=== PATIENT | male | born 1975 | race Caucasian/White ===

== ENCOUNTER → 2018-08-03 09:25 | Outpatient (CLI) | payer OTHER, SELFPAY | PROVIDERS: Family Provider Family Medicine; PCP Family Medicine | DX: Z23 Encounter for immunization (principal) | CPT/HCPCS: 90471; 90686 ==

== ENCOUNTER → 2019-08-14 15:44 | Outpatient (CLI) | payer OTHER, SELFPAY ==
--- NOTE | 2019-08-14 | DI.RAD.S_ITS ---
PROCEDURE: XR ANKLE RT MIN 3V INDICATIONS: right ankle pain and swelling TECHNIQUE: 3 views of the ankle were acquired. COMPARISON: [facility] [place], CR, XR ANKLE 3+ VIEWS LEFT, 07/10/2018, 10:28. FINDINGS: Bones: Minimally displaced distal fibular metaphyseal fracture is present and there is adjacent soft tissue swelling. Fracture is likely intra-articular. Ankle mortise is symmetric. Plantar calcaneal spurring. Soft tissues: No tibiotalar joint effusion. Achilles tendon appears normal. IMPRESSION: Minimally displaced distal fibular metaphyseal fracture. Dictated by: Pepito Chew [facility] Interpreted: Joe Russell MD on 08/14/2019 at 17:08 Approved by: Joe Russell M.D. on 08/15/2019 at 9:20
== END ==
PROVIDERS: PCP Student in an Organized Health Care Education/Training Program; Visit Provider Internal Medicine
DX: M25.571 Pain in right ankle and joints of right foot (principal); M25.471 Effusion, right ankle
CPT/HCPCS: 73610

== ENCOUNTER → 2019-08-16 12:27 | Outpatient (CLI) | payer OTHER, SELFPAY | PROVIDERS: PCP Student in an Organized Health Care Education/Training Program | DX: Z23 Encounter for immunization (principal) | CPT/HCPCS: 90471; 90686 ==

== ENCOUNTER → 2019-09-05 10:23 | Outpatient (CLI) | payer OTHER, SELFPAY ==
--- NOTE | 2019-09-05 | DI.RAD.S_ITS ---
PROCEDURE: XR TIBIA FUBULA RT 2V INDICATIONS: f/u fracture R Fibula TECHNIQUE: 2 views of the tibia and fibula were acquired. COMPARISON: [facility], [place], XR ANKLE RT MIN 3V, 08/14/2019, 15:55. FINDINGS: Bones: Stable radiographic in alignment of known distal right fibular fracture. No significant periosteal reaction or callus formation. No other fractures identified. Soft tissues: No suspicious soft tissue calcifications or masses. IMPRESSION: Stable appearance and alignment of minimally displaced distal fibular metaphyseal fracture. Dictated by: Joe Russell M.D. on 09/05/2019 at 14:44 Approved by: Joe Russell M.D. on 09/05/2019 at 14:50
== END ==
PROVIDERS: PCP Student in an Organized Health Care Education/Training Program; Visit Provider Student in an Organized Health Care Education/Training Program
DX: S89.301D Unspecified physeal fracture of lower end of right fibula, subsequent encounter for fracture with routine healing (principal)
CPT/HCPCS: 73590

== ENCOUNTER → 2020-11-28 09:10 | Outpatient (CLI) | payer OTHER, SELFPAY ==
[2020-11-28] MEDS: COVID-19 VACC(MODERNA-1)/PF 100 MCG/0.5 ML VIAL IM (09:16)
== END ==
PROVIDERS: PCP Student in an Organized Health Care Education/Training Program; Visit Provider Internal Medicine
DX: Z23 Encounter for immunization (principal)
CPT/HCPCS: 0011A; 91301

== ENCOUNTER → 2020-12-26 09:04 | Outpatient (CLI) | payer OTHER, SELFPAY ==
[2020-12-26] MEDS: COVID-19 VACC #2, MRNA(MOD) 100 MCG/0.5 ML VIAL IM (09:13)
== END ==
PROVIDERS: PCP Student in an Organized Health Care Education/Training Program; Visit Provider Internal Medicine
DX: Z23 Encounter for immunization (principal)
CPT/HCPCS: 0012A; 91301

== ENCOUNTER → 2025-03-20 12:49 | Outpatient (CLI) | payer OTHER, SELFPAY ==
--- NOTE | 2025-03-20 12:55 | DI.RAD.S_ITS ---
PROCEDURE: XR KNEE RT 3V INDICATIONS: Bilateral primary osteoarthritis of knee TECHNIQUE: 3 views of the knee were acquired. COMPARISON: None. FINDINGS: Bones: Patella Anuradha and slight lateral patellar subluxation noted Joints: Moderate patellofemoral and tibial femoral degenerative change appreciated. There are cluster 3-4 loose bodies in the posterior central tibial femoral joint all less than 6 mm. Small suprapatellar effusion noted Soft tissues: 8 mm calcification at the patellar tendon insertion on the tibial tuberosity is likely stigmata of old trauma or inflammation. IMPRESSION: Moderate degeneration. Small loose bodies posterior central tibial femoral joint. Other chronic findings. Patella Anuradha with slight lateral patellar subluxation. Small effusion Dictated by: López Cottrell M.D. on 03/21/2025 at 6:38 Approved by: López Cottrell M.D. on 03/21/2025 at 6:40
== END ==
LOC: RAD 12:52
PROVIDERS: PCP Family Medicine; Referring Provider Family Medicine; Visit Provider Family Medicine
DX: M17.0 Bilateral primary osteoarthritis of knee (principal); S83.011A Lateral subluxation of right patella, initial encounter; M25.461 Effusion, right knee
CPT/HCPCS: 73562

== ENCOUNTER → 2025-05-20 12:21 | Outpatient (CLI) | payer OTHER, SELFPAY ==
--- NOTE | 2025-05-20 12:22 | DI.MRI.S_ITS ---
PROCEDURE: MR HAND LT WO CON INDICATIONS: LEFT HAND PAIN TECHNIQUE: Noncontrast oblique coronal T1 spin echo and T2 fast spin echo with fat saturation, axial and sagittal T2 fast spin echo with fat saturation, through the hand. COMPARISON: None. FINDINGS: Image quality: Excellent. Bones: Severe degenerative changes of the 1st carpometacarpal joint, with joint space narrowing, osteophytosis, subchondral cystic changes, and marked subchondral marrow edema, extending distally to the 1st metacarpal mid diaphysis. No acute fracture. Soft tissue: The flexors, and the extensor tendons are unremarkable. Muscles are normal in signal. No ganglion cyst. IMPRESSION: Severe degenerative change of the 1st carpometacarpal joint. Dictated by: Lucia Lee M.D. on 05/20/2025 at 14:03 Approved by: Lucia Lee M.D. on 05/20/2025 at 14:09
== END ==
PROVIDERS: PCP Family Medicine; Referring Provider Family Medicine; Visit Provider Family Medicine
DX: M79.642 Pain in left hand (principal)
CPT/HCPCS: 73218

== ENCOUNTER → 2025-06-03 12:19 | Outpatient (CLI) | payer OTHER, SELFPAY ==
--- NOTE | 2025-06-03 12:21 | DI.MRI.S_ITS ---
PROCEDURE: MR KNEE RT WO CON INDICATIONS: RIGHT KNEE PAIN TECHNIQUE: Noncontrast sagittal PD fast spin echo and T2 fast spin echo with fat saturation, sagittal 3-D FLASH with fat saturation; coronal T1 spin echo and PD fast spin echo with fat saturation, and axial PD fast spin echo with fat saturation through the knee. COMPARISON: None. FINDINGS: Image quality: Excellent. Menisci: Markedly abnormal appearance of the medial meniscus with macerated/degenerated irregular frayed posterior horn into the mid body. The medial meniscus is displaced medially on the coronal images. Anterior horn into the anterior meniscal root ligament is mildly thinned with blunted apex but otherwise normal in signal intensity. Posterior meniscocapsular separation medially and laterally. Mild irregularity of the posterior horn of the lateral meniscus with internal globular signal commonly degenerative versus subtle horizontal tear of the does not definitively exit to a surface. Cruciate ligaments: Moderate increased T2 weighted signal and diffuse thinning of the anterior cruciate ligament, moderate injury/strain , partial tear with a few intact fibers without complete tear or retraction. Moderate increased T2 weighted signal and thickening of the proximal aspect of the posterior cruciate ligament suspicious for moderate injury/strain versus partial tear. Medial structures: Mild increased medial bursal fluid is nonspecific. The medial collateral ligament appears intact. The semimembranosus tendon insertion is intact. Visualized portions of the pes anserinus tendons appear normal. Lateral structures: Mild increased T2 weighted signal and thickening of the proximal lateral collateral ligament and distal popliteus tendon mild injury/strain without full-thickness tear or retraction. The long and short heads of the biceps femoris tendon appear intact. Iliotibial band appears normal. Anterior structures: Well corticated oval-shaped calcifications at the distal aspect of the patellar ligament may be related to enthesophyte calcifications, remote [place] or other remote injury. Otherwise the quadriceps tendon and patellar ligament are normal. Flattening of the medial and lateral patellar facets and femoral trochlea with mild 7 mm subluxation of the patella laterally on the axial images (series 9, image 12). Bones and cartilage: Several scattered areas of subchondral edema in the patella with marked cartilaginous thinning and irregularity chondromalacia patella in the lateral greater than medial patellar facets. Moderate diffuse cartilage thinning with irregularity in the medial and lateral compartments with a 5 mm focal cartilage defect in the lateral femoral condyle (series 11, image 11). Joint space: Mild knee joint effusion. Soft tissue edema and several suspected ganglion cysts with septated fluid collections posterior to the posterior cruciate ligament and the lateral femoral condyle measuring up to 2.5 cm in total. There several intra-articular loose bodies contain in a fluid collection posterior to the posterior cruciate ligament measuring up to 9 mm diameter. No significant popliteal cyst. IMPRESSION: Macerated/torn medial meniscus. Injury/strain, partial tears of the anterior and posterior cruciate ligaments. Degenerative changes with diffuse cartilaginous thinning, irregularity in the medial lateral and patellofemoral compartments. Mild knee joint effusion, intra-articular loose bodies posteriorly, posterior ganglion cysts. Other findings as above. Dictated by: Flex Lepe M.D. on 06/04/2025 at 10:57 Approved by: Flex Lepe M.D. on 06/04/2025 at 11:41
== END ==
LOC: MRI 12:20
PROVIDERS: PCP Family Medicine; Referring Provider Orthopaedic Surgery; Visit Provider Orthopaedic Surgery
DX: S83.241A Other tear of medial meniscus, current injury, right knee, initial encounter (principal); S83.511A Sprain of anterior cruciate ligament of right knee, initial encounter; S83.521A Sprain of posterior cruciate ligament of right knee, initial encounter; M25.461 Effusion, right knee; M67.461 Ganglion, right knee; M25.561 Pain in right knee
CPT/HCPCS: 73721